=== PATIENT | male | born 1980 | race Caucasian/White ===

== ENCOUNTER 2019-09-04 20:41 | Emergency (ER) | payer SELFPAY ==
[2019-09-04 21:10] VITALS: BP 124/86; PULSE 98
--- NOTE | 2019-09-04 22:12 | EDM.PDOC ---
ED HPI GENERAL MEDICAL PROBLEM - General Chief Complaint: Lower Extremity Injury/Pain Stated Complaint: RIGHT ANKLE POSSIBLE BREAK Time Seen by Provider: 09/04/19 21:49 Source of Information: Reports: Patient History Limitations: Reports: No Limitations - History of Present Illness INITIAL COMMENTS - FREE TEXT/NARRATIVE: Patient is a 39-year-old male who presents with complaints of pain and swelling to his right ankle. Patient states he was carrying a microwave when he slipped on the ice rolling his ankle. Pain is to the lateral malleolus. He does have some numbness and tingling distal to the injury. Denies any previous injury to this extremity. He has not taken any medications for pain thus far. 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 Right Ankle Pain Score (Numeric/FACES): 8 - Related Data Allergies Allergy/AdvReac Type Severity Reaction Status Date / Time No Known Allergies Allergy Verified 12/10/14 01:51 Past Medical History Respiratory History: Reports: Asthma Genitourinary History: Reports: Other (See Below) Other Genitourinary History: urethra rupture repair Musculoskeletal History: Reports: Fracture Neurological History: Reports: Concussion Psychiatric History: Reports: ADHD, Anxiety - Past Surgical History HEENT Surgical History: Reports: Oral Surgery Musculoskeletal Surgical History: Reports: ORIF, Shoulder Surgery Other Musculoskeletal Surgeries/Procedures:: right collor bone, right shoulder Social & Family History - Tobacco Use Smoking Status *Q: Current Every Day Smoker Years of Tobacco use: 16 Packs/Tins Daily: 0.5 - Caffeine Use Caffeine Use: Reports: Coffee, Energy Drinks, Soda, Tea - Recreational Drug Use Recreational Drug Use: No Review of Systems - Review of Systems Review Of Systems: Comprehensive ROS is negative, except as noted in HPI. ED EXAM, GENERAL - Physical Exam Exam: See Below Exam Limited By: No Limitations General Appearance: Alert, WD/WN, No Apparent Distress Respiratory/Chest: No Respiratory Distress, Lungs Clear, Normal Breath Sounds, No Accessory Muscle Use, Chest Non-Tender Cardiovascular: Normal Peripheral Pulses, Regular Rate, Rhythm, No Edema, No Gallop, No JVD, No Murmur, No Rub Extremities: Normal Capillary Refill, Joint Swelling (To the area of the lateral malleolus of the right foot. No obvious deformity.) Neurological: Alert, Oriented, CN II-XII Intact, Normal Cognition, Normal Gait, Normal Reflexes, No Motor/Sensory Deficits Psychiatric: Normal Affect, Normal Mood Skin Exam: Warm, Dry, Intact, Normal Color, No Rash Course - Vital Signs Last Recorded V/S: Last Vital Signs Temp 99 F 09/04/19 20:58 Pulse 98 09/04/19 20:58 Resp 18 09/04/19 20:58 BP 124/86 09/04/19 20:58 Pulse Ox 98 09/04/19 20:58 - Orders/Labs/Meds Orders: Active Orders 24 hr Category Date Time Status Ankle Min 3V Rt [CR] Stat Exams 09/04/19 21:45 Ordered Foot Comp Min 3V Rt [CR] Stat Exams 09/04/19 21:58 Ordered DME for Discharge [COMM] Routine Oth 09/04/19 22:07 Ordered - Re-Assessments/Exams Free Text/Narrative Re-Assessment/Exam: 09/04/19 22:09 X-ray reviewed by myself and Dr. Mojica. No fracture is visualized to the ankle or foot. Patient likely has a grade 1 sprain of the right ankle. I have ordered a air splint and crutches. Discharge instructions as noted. Departure - Departure Time of Disposition: 22:10 Disposition: Home, Self-Care 01 Condition: Fair Clinical Impression: Ankle sprain Qualifiers: Encounter type: initial encounter Involved ligament of ankle: unspecified ligament Laterality: right Qualified Code(s): S93.401A - Sprain of unspecified ligament of right ankle, initial encounter - Discharge Information *PRESCRIPTION DRUG MONITORING PROGRAM REVIEWED*: No *COPY OF PRESCRIPTION DRUG MONITORING REPORT IN PATIENT NABILA: No Instructions: Ankle Sprain, [id number] Referrals: PCP,None [Primary Care Provider] - Additional Instructions: You were seen in the emergency department today for pain and swelling to your right ankle after rolling it. There were fractures visible to the area. It is likely that you have a grade 1 sprain of the right ankle. You have been provided with an air splint. Wear this at all times for the next week. You may be weightbearing as tolerated. I also recommend that you ice and elevate the extremity especially over the next couple days. You may use over-the- counter ibuprofen as needed for the pain. After 1 week you should gradually begin to bear weight on the extremity without the air splint on it. If after 2 weeks you continue to have pain to the ankle, I would recommend that you follow- up with Dr. Olivarez, orthopedist, at [facility]. If you should experience any worsening symptoms, please do not hesitate to return to the emergency department. Sepsis Event Note - Evaluation Sepsis Screening Result: No Definite Risk - Focused Exam Vital Signs: Vital Signs Temp Pulse Resp BP Pulse Ox 09/04/19 20:58 99 F 98 18 124/86 98 Date Exam was Performed: 09/04/19 Time Exam was Performed: 22:08 - My Orders Last 24 Hours: My Active Orders 09/04/19 21:45 Ankle Min 3V Rt [CR] Stat 09/04/19 21:58 Foot Comp Min 3V Rt [CR] Stat 09/04/19 22:07 DME for Discharge [COMM] Routine - Assessment/Plan Last 24 Hours: My Active Orders 09/04/19 21:45 Ankle Min 3V Rt [CR] Stat 09/04/19 21:58 Foot Comp Min 3V Rt [CR] Stat 09/04/19 22:07 DME for Discharge [COMM] Routine
--- NOTE | 2019-09-05 07:17 | CR ---
Right ankle: Four views of the right ankle were obtained. Comparison: No prior right ankle exam. Mild soft tissue swelling is identified. Ankle mortise is symmetric. No acute fracture, dislocation or other bony abnormality is identified. Impression: 1. Mild soft tissue swelling. 2. No acute bony abnormality is identified. Diagnostic code #2 This report was dictated in [place] Standard Time
--- NOTE | 2019-09-05 08:33 | CR ---
Right foot: Three views of the right foot were obtained. Comparison: No prior foot exam. No acute fracture, dislocation or other bony abnormality is seen. Impression: 1. No abnormality is appreciated on right foot exam. Diagnostic code #1 This report was dictated in [place] Standard Time
== END 2019-09-04 22:35 | disposition home or self-care (01) ==
LOC: JD.ED 20:41
DX: S93.401A Sprain of unspecified ligament of right ankle, initial encounter (principal); J45.909 Unspecified asthma, uncomplicated; F17.210 Nicotine dependence, cigarettes, uncomplicated; X50.1XXA Overexertion from prolonged static or awkward postures, initial encounter
CPT/HCPCS: 73610-26-RT; 73610-RT; 73630-26-RT; 73630-RT; 99282; 99283-25